=== PATIENT | female | born 1965 | race Caucasian/White ===

== ENCOUNTER → 2017-02-08 | Outpatient (CLI) | payer SELFPAY ==
--- NOTE | 2017-02-09 09:03 | US ---
EXAM DESCRIPTION: Venous,Lower Extremity LT CLINICAL HISTORY: EDEMA COMPARISON: None Available. TECHNIQUE: Left lower extremity venous ultrasound was performed. Static estrella scale, color and spectral doppler images were saved to the patients medical record. FINDINGS: There is no DVT identified. There is normal color flow observed with good flow augmentation. All deep veins compress normally. IMPRESSION: Negative for DVT within the left lower extremity. Electronically signed by: Karan Nix MD 02/09/2017 9:03 AM CDT
--- NOTE | 2017-02-09 09:05 | US ---
EXAM DESCRIPTION: Extremity,Lower LT Arteries CLINICAL HISTORY: Left lower extremity pain, possible arterial insufficiency COMPARISON: None Available. TECHNIQUE: Left lower extremity arterial ultrasound was performed. Static estrella scale, color and spectral doppler images were saved to the patients medical record. FINDINGS: Left lower extremity arterial ultrasound reveals triphasic waveforms and biphasic waveforms throughout the left lower extremity. No evidence of arterial occlusion on today's exam. Peak systolic velocities are unremarkable. IMPRESSION: Unremarkable arterial ultrasound within the left lower extremity. Electronically signed by: Karan Nix MD 02/09/2017 9:05 AM CDT
== END | disposition home or self-care (01) ==
LOC: US 09:36
PROVIDERS: ATTEND Nurse Practitioner Family
DX: R60.0 Localized edema (principal)

== ENCOUNTER → 2017-07-31 | Outpatient (CLI) | payer OTHER ==
--- NOTE | 2017-08-02 10:19 | MAM ---
EXAM DESCRIPTION: 3D Screening BILATERAL : Digital Mammography. CLINICAL HISTORY: 52 years Female SCREENING . No complaints. No family history of breast cancer. Postmenopausal. No HRT. COMPARISON: 3-D digital screening bilateral study 05/16/2013.. No prior reports available. TECHNIQUE: Bilateral CC and MLO projection full-field images, 3-D tomosynthesis digital mammographic technique. Also bilateral synthesized CC/ MLO full-field images. CAD not utilized. FINDINGS: The breast parenchymal density pattern is: Scattered areas of fibroglandular density. No skin thickening or nipple retraction bilateral solitary microcalcifications. Left breast axillary lymph nodes. No focal, stellate mass or density, focal asymmetry , and no suspicious microcalcifications bilaterally. Stable mammograms compared to prior study, taking into account differences in mammographic technique IMPRESSION: BI-RADS CATEGORY: 2 - BENIGN FINDINGS. FOLLOW UP: Routine digital bilateral screening, one year interval from July 2017. Written communication explaining the IMPRESSION and follow-up, will be mailed to the patient and referring health care provider. According to the [employer], yearly mammograms are recommended starting at age 40 and continuing as long as a woman is in good health. Any breast change noted on a breast self-exam should be reported promptly to the patient's healthcare provider. Breast MRI is recommended for women with an approximately 20-25% or greater lifetime risk of breast cancer, including women with a strong family history of breast or ovarian cancer and women who have been treated for Hodgkin's disease. A negative mammographic report should not delay tissue diagnosis in patients with significant clinical history or physical findings. Extremely dense breast tissue limits the sensitivity of digital mammography. Electronically signed by: Gurdeep Gibson MD 08/02/2017 10:18 AM [facility]
== END | disposition home or self-care (01) ==
LOC: MAMMO 11:01
PROVIDERS: ATTEND Family Medicine
DX: Z12.31 Encounter for screening mammogram for malignant neoplasm of breast (principal)
CPT/HCPCS: 77063; G0202

== ENCOUNTER → 2017-12-06 | Outpatient (CLI) | payer SELFPAY | LOC: RESP 11:50 | PROVIDERS: ATTEND Nurse Practitioner Family | DX: R00.9 Unspecified abnormalities of heart beat (principal) ==

== ENCOUNTER → 2018-03-15 | Outpatient (CLI) | payer OTHER | LOC: YCFC.O 15:00 | PROVIDERS: ATTEND Nurse Practitioner Family | DX: R53.83 Other fatigue (principal) ==